=== PATIENT | female | born 1950 | race Two or more races ===

== ENCOUNTER 2016-12-05 05:37 | Day surgery (SDC) | payer MEDICARE, OTHER ==
[~2016-12-05] VITALS: Ht 160 cm; Wt 108.2 kg
[2016-12-05 06:25] VITALS: BP 128/50; PULSE 77; RESP 18
[2016-12-05] MEDS ORDERED: PROPOFOL 20 ML ONE (06:28)
[2016-12-05] MEDS ORDERED: LIDOCAINE 100 MG SYRINGE ONE (06:28)
--- NOTE | 2016-12-05 06:28 | PREOPHP ---
DATE OF ADMISSION: 12/05/2016 HISTORY OF PRESENT ILLNESS: This 66-year-old patient is admitted for elective cataract surgery of t he right eye. The patient has had a 25 to 30 year history of insulin-dependent diabetes mellitus an d over the past 3 years has undergone retinal laser therapy for diabetic retinopathy including panre tinal photocoagulation and focal laser therapy of the macula area for secondary macula edema. The p atient denies other history of eye disease or injury. PAST MEDICAL HISTORY: Patient's systemic history is positive for hypertension, hypercholesterolemia and diabetes. CURRENT MEDICATIONS: Include: 1. Insulin. 2. Losartan. 3. Atorvastatin. ALLERGIES: THERE ARE NO KNOWN ALLERGIES. PHYSICAL EXAMINATION: The visual acuity with best correction is 20/50 -2 in the right eye and 20/40 -1 in the left eye. Slit lamp examination reveals anterior cortical and nuclear sclerotic cataract s in both eyes with posterior subcapsular cataract in the right eye. Applanation tonometry is 20 mm Hg. Examination of the retina reveals evidence of extensive retinal laser therapy. DIAGNOSIS: Posterior subcapsular cataract, right eye. PLAN: Cataract extraction with lens implant, right eye. The risks and alternatives to the surgery have been discussed with the patient as well as the potential limitation of visual improvement due t o the prior history of diabetic retinopathy. The patient understands this and agrees to proceed wit h surgery in hopes of improving visual acuity leading to a greater ability to perform activities of daily living. Dictated By: BRIDGETT MELVIN/SAMI Conf#: [id number] DID#: [id number]
[2016-12-05] MEDS ORDERED: CYCLOPENTOLATE/PHENYLEPH 2 ML OPH OPER SCH (06:30)
[2016-12-05] MEDS ORDERED: OXYCODONE/ACETAMINOPHEN (5/325) TAB PO PRN ×2 (06:30)
[2016-12-05] MEDS ORDERED: morphine (1 MG/ML) 10ML SYRINGE IV PRN ×3 (06:30)
[2016-12-05] MEDS ORDERED: DICLOFENAC 0.1% 2.5 ML OPH OPER SCH (06:30)
[2016-12-05] MEDS ORDERED: hydrALAzine 20 MG INJ IV PRN (06:30)
[2016-12-05] MEDS ORDERED: LABETALOL HCL 20MG INJ IV PRN (06:30)
[2016-12-05] MEDS ORDERED: TROPICAMIDE 1% 2 ML OPH OPER SCH (06:30)
[2016-12-05] MEDS ORDERED: ATROPINE 1 MG/10 ML SYRINGE IV PRN (06:30)
[2016-12-05] MEDS ORDERED: DIPHENHYDRAMINE 50 MG INJ IV PRN (06:30)
[2016-12-05] MEDS ORDERED: FENTAnyl 50 MCG/ML VIAL IV PRN ×2 (06:30)
[2016-12-05] MEDS ORDERED: HYDROmorphONE (0.2 MG/ML) 10ML SYG IV PRN ×3 (06:30)
[2016-12-05] MEDS ORDERED: EPHEDrine SULFATE 50 MG/5 ML SYG IV PRN (06:30)
[2016-12-05] MEDS ORDERED: ONDANSETRON 4 MG INJ IV PRN (06:30)
[2016-12-05] MEDS ORDERED: MEPERIDINE 25 MG INJ IV PRN (06:30)
[2016-12-05] MEDS ORDERED: CIPROFLOXACIN 0.3% 2.5 ML OPH OPER SCH (06:30)
[2016-12-05] MEDS ORDERED: PHENYLephrine 10% 5 ML OPH OPER SCH (06:30)
[2016-12-05] MEDS ORDERED: MIDAZOLAM 1 MG/ML 2 ML INJ IV PRN (06:30)
[2016-12-05 06:32] VITALS: Ht 160 cm; Wt 108.2 kg
[2016-12-05] MEDS ORDERED: MOXIFLOXACIN 0.5% 3 ML OPH ONE (06:52)
[2016-12-05] MEDS ORDERED: TETRACAINE 0.5% 15 ML OPH ONE (06:52)
[2016-12-05] MEDS ORDERED: LIDOCAINE 4% (MPF) 5 ML INJ ONE (06:52)
[2016-12-05] MEDS ORDERED: CARBACHOL 0.01% 1.5 ML OPH INJ ONE (06:52)
[2016-12-05] MEDS ORDERED: CEFAZOLIN 1 GM INJ ONE (06:52)
[2016-12-05] MEDS ORDERED: HYALURONATE/CHONDROITIN 1ML OPH INJ ONE (06:52)
[2016-12-05] MEDS ORDERED: GENTAMICIN 80 MG INJ ONE (06:52)
[2016-12-05] MEDS ORDERED: DEXAMETHASONE 4 MG/ML 1 ML INJ ONE (06:52)
[2016-12-05] MEDS ORDERED: EPINEPHrine 1 MG INJ ONE (06:52)
[2016-12-05] MEDS ORDERED: SPIR100T31 PO (06:55)
[2016-12-05] MEDS ORDERED: LOSA100T7 PO (06:55)
[2016-12-05] MEDS ORDERED: ATOR80TA75 PO (06:55)
[2016-12-05] MEDS ORDERED: ASPI-664 (06:55)
[2016-12-05] MEDS ORDERED: INSU100I12 (06:55)
[2016-12-05] MEDS ORDERED: NPH,100V (06:55)
[2016-12-05] MEDS ORDERED: SODIUM CL BACTERIOSTATIC 30 ML INJ ONE (07:18)
[2016-12-05] MEDS ORDERED: LIDOCAINE 1% (MPF) 10 ML INJ ONE (08:00)
[2016-12-05] MEDS ORDERED: FENTAnyl 50 MCG/ML VIAL ONE (08:01)
[2016-12-05] MEDS ORDERED: MIDAZOLAM 1 MG/ML 2 ML INJ ONE (08:04)
[2016-12-05 08:43] VITALS: BP 114/56; PULSE 70; RESP 14
[2016-12-05 08:48] VITALS: BP 112/59; PULSE 68; RESP 14
[2016-12-05 08:53] VITALS: BP 109/55; PULSE 66; RESP 14
[2016-12-05 08:58] VITALS: BP 109/57; PULSE 66; RESP 14
[2016-12-05 09:10] VITALS: BP 123/58; PULSE 68; RESP 16
--- NOTE | 2016-12-05 10:15 | OPR ---
DATE OF OPERATION: 12/05/2016 PREOPERATIVE DIAGNOSIS: Cataract, right eye. POSTOPERATIVE DIAGNOSIS: Cataract, right eye. OPERATION PERFORMED: Cataract extraction with lens implant, right eye. SURGEON: Bridgtet Chatman MD ANESTHESIA: Local standby. ANESTHESIOLOGIST: Dr. Thurman DESCRIPTION OF PROCEDURE: The patient brought to the operating room and positioned on the eye gurney appropriately and then was attached to electrocardiogram monitoring, given some oxygen via nasal cannula. Intravenous sedation was administered. The patient received a local anesthesia using lidocaine 4% given in lid block and retrobulbar injection. The patient was then prepped and draped in the usual sterile manner and a speculum was inserted between the lids of the right eye. Two paracentesis incisions were created with a Superblade at the 3 and 9 o'clock position through clear cornea at the limbus and then using a 3.0 mm keratome, a stepped incision was made into clear cornea at the 12 o'clock position. Through this opening, an irrigating cystotome was introduced, the anterior chamber was filled with DisCoVisc and an anterior capsulotomy was performed. Balanced salt solution was used for hydrodissection. Phacoemulsification of the lens nucleus was then performed. Following that, the lens cortical material was removed by means of irrigation aspiration. During this time, it was noted that the posterior capsule stripped centrally; however, some residual peripheral posterior capsule remained. An attempt was made to place a posterior chamber intraocular lens in position in the posterior chamber with the haptics being supported by the peripheral capsule. A 21- diopter posterior chamber intraocular lens was placed; however, the lens was not well supported in the posterior capsule, and as a result, the lens needed to be removed. In order to do so, the wound was opened beyond its 3 mm extent to approximately 6 mm. The lens was then removed. During this process, it was noted that there was some formed vitreous present in the anterior chamber and therefore, a limited anterior vitrectomy was performed. When there was no vitreous in the anterior chamber or at the lips of the wound, it was decided to place an anterior chamber lens implant. The pupil was constricted with Miostat and then a peripheral iridectomy was performed at the 12 o'clock position. Additional DisCoVisc was injected into the anterior chamber and then a lens glide was placed across the anterior surface of the iris. After this had been done, an anterior chamber lens measuring 19.5 diopters ( Bausch [employer] Lomb model L122UV) was inserted anterior to the lens glide, which was then removed. The trailing haptic was then tucked under the scleral shelf. Three 10-0 nylon sutures were placed across the wound and tied with the ends cut short. The lens was then rotated so that the haptics were in the horizontal meridian and resting in the anterior chamber angle. A fourth 10-0 nylon suture was placed and tied. Its ends were cut short and the knots of all 4 sutures were then buried. Prior to placing the final suture; however, the DisCoVisc was aspirated from the anterior chamber. When it was noted that the lens was positioned appropriately and the pupil had been constricted by Miostat , additional balanced salt solution was placed in the anterior chamber to deepen it and then the speculum was removed, and 0.5 mL of Ancef and 0.5 mL of dexamethasone were injected into the subconjunctival space and Vigamox drops were placed on the surface of the eye. The eye was then patched and the patient left the operating room in satisfactory condition. Dictated By: BRIDGETT MELVIN/SAMI Conf#: [id number] DID#: [id number]
== END 2016-12-05 09:30 | disposition home or self-care (01) ==
LOC: SDS 05:37
PROVIDERS: ATTEND Ophthalmology
DX: H26.9 Unspecified cataract (principal); E11.319 Type 2 diabetes mellitus with unspecified diabetic retinopathy without macular edema; Z79.4 Long term (current) use of insulin; I10 Essential (primary) hypertension; E78.00 Pure hypercholesterolemia, unspecified; E66.01 Morbid (severe) obesity due to excess calories; Z68.41 Body mass index [BMI] 40.0-44.9, adult
CPT/HCPCS: 66984; 82962; J0171; J0690; J1100; J1580; J2001; J2250; J3010; V2632

== ENCOUNTER 2017-01-30 11:09 | Emergency (ER) | payer MEDICARE, OTHER ==
[~2017-01-30] VITALS: Ht 160 cm; Wt 109.0 kg
[~2017-01-30 11:09] MED LIST: ASPI-664; ATOR80TA75 PO; INSU100I12; LOSA100T7 PO; NPH,100V; SPIR100T31 PO
[2017-01-30 11:26] VITALS: Ht 160 cm; Wt 109.0 kg
--- NOTE | 2017-01-30 14:06 | RADRPT ---
PROCEDURE: XR Chest. CLINICAL INDICATION: Chest pain TECHNIQUE: Chest PA COMPARISON: None available FINDINGS: The mediastinal structures are unremarkable. There is calcification of the thoracic aorta (consiste nt with atherosclerosis). The heart is normal in size and configuration. The pulmonary vascularity is normal. The lung isaacs are unremarkable. No consolidation is identified. The pleural spaces are unremarkable. There are senescent changes of the axial skeleton. IMPRESSION: Calcification of the thoracic aorta (consistent with atherosclerosis). No evidence for active cardiopulmonary disease. RPTAT: [facility] .Emanuel Osborne MD, MD Date Time Electronically viewed and signed by .Emanuel Osborne MD, on 01/30/2017 14:06 .B/
--- NOTE | 2017-01-30 14:13 | RADRPT ---
PROCEDURE: XR Wrist. CLINICAL INDICATION: Trauma, left wrist pain TECHNIQUE: 4 views of the left wrist were performed. COMPARISON: No prior studies are available for comparison. FINDINGS: There is no acute fracture or dislocation. Alignment is normal. Joint spaces are preserved. Visualized soft tissues are grossly unremarkable. IMPRESSION: 1. No radiographic evidence of acute osseous abnormality of the left wrist. RPTAT: [facility] .Srinath Rodriguez MD, MD Date Time Electronically viewed and signed by .Srinath Rodriguez MD, on 01/30/2017 14:13 .K/
--- NOTE | 2017-01-30 14:14 | RADRPT ---
PROCEDURE: XR Elbow. CLINICAL INDICATION: Trauma, left elbow pain TECHNIQUE: AP, lateral and oblique views of the left elbow performed. COMPARISON: None. FINDINGS: There is an acute slightly impacted radial neck fracture with 1-2 mm of radial sided cortical offset . There is a small elbow joint effusion. The bones are somewhat osteopenic. No additional fractur es are seen. There is no articular surface step-off identified. IMPRESSION: 1. Acute slightly impacted radial neck fracture with background osteopenia. 2. Small elbow joint effusion. RPTAT: [facility]U .Srinath Rodriguez MD, MD Date Time Electronically viewed and signed by .Srinath Rodriguez MD, on 01/30/2017 14:14 .K/
[2017-01-30] MEDS ORDERED: IBUP-1542 PO (14:35)
--- NOTE | 2017-01-30 14:39 | ERD ---
ER Documentation Chief Complaint Date/Time DATE: 01/30/17 TIME: 14:37 Chief Complaint left arm pain due to fall HPI 66-year-old female fell after tripping approximately 2 weeks ago. She is here complaining of persistent pain in her left elbow, left wrist and bilateral lower chest wall area. She denies any head injury loss consciousness, neck pain , weakness, bleeding, restricted range of motion or weakness. ROS All systems reviewed and are negative except as per history of present illness. Medications Home Meds Active Scripts Ibuprofen* (Motrin*) 600 Mg Tab, 600 MG PO Q6, #18 TAB Prov:PER GONSALES MD 01/30/17 Reported Medications Spironolactone* (Spironolactone*) 100 Mg Tablet, 25 MG PO BID, TAB 12/05/16 Aspirin* (Aspirin* EC) 81 Mg Tablet.dr, #120 12/05/16 Atorvastatin* (Atorvastatin*) 80 Mg Tablet, 1 TAB PO QHS, #90 12/05/16 Losartan Potassium* (Losartan Potassium*) 100 Mg Tablet, 1 TAB PO DAILY, #60 12/05/16 Insulin Lispro (Humalog Kwikpen U-100) 100 Unit/1 Ml Insuln.pen, #10 12/05/16 Insulin NPH Human Isophane (Humulin N) 100 Unit/1 Ml Vial, #30 12/05/16 Allergies Allergies: Coded Allergies: No Known Allergy (Unverified , 12/05/16) PMhx/Soc History of Surgery: Yes (RT VARICOSE, r. eye cataract ) Anesthesia Reaction: Yes Hx Neurological Disorder: No Hx Respiratory Disorders: No Hx Cardiac Disorders: Yes (HTN) Hx Psychiatric Problems: No Hx Miscellaneous Medical Probl: Yes (dm ) Hx Alcohol Use: No Hx Substance Use: No Hx Tobacco Use: No Physical Exam Vitals Vital Signs Date Time Temp Pulse Resp B/P Pulse Ox O2 Delivery O2 Flow Rate FiO2 01/30/17 11:26 98.4 78 20 152/63 97 Physical Exam Const: [] Alert, [id number]. Head: Atraumatic Eyes: Normal Conjunctiva ENT: Normal External Ears, Nose and Mouth. Neck: Full range of motion..~ No meningismus. Resp: Clear to auscultation bilaterally Cardio: Regular rate and rhythm, no murmurs. Mild bilateral chest wall tenderness approximately T10. No crepitance or skin changes. Abd: Soft, non tender, non distended. Normal bowel sounds Skin: No petechiae or rashes Back: No midline or flank tenderness Ext: No cyanosis, or edema. There is some tenderness which is mild in the left radial head area. Some mild generalized tenderness in the left wrist. There is no appreciable restricted range of motion or weakness or tendon or neurologic deficits. There is no bleeding, redness or lacerations Neur: Awake and alert Psych: Normal Mood and Affect Procedures/MDM Chest X-ray 1V Interpreted by me: Soft Tissue: No acute abnormalities Bones: No acute abnormalities Mediastinum/Cardiac Silhouette/Lungs: [No acute abnormalities]. Impression- normal 1 view chest x-ray X-ray Elbow 3V Interpreted by me: Fat Pads: There is an elevated left anterior fat pad. Bones: There is an impacted radial head fracture Joints: [No dislocation] Foreign body: [None]. Impression-impacted radial head fracture left elbow with slight effusion. X-ray left wrist 3V Interpreted by me: Scaphoid: [Normal] Bones: [No fracture] Joints: [No dislocation] Foreign body: [None]. Impression abnormal left wrist x-ray Patient was placed in a left wrist Velcro brace and left arm sling. Splint Assessment: Neurovascularly intact post splint placement with good fit. Patient presents 2 weeks after mechanical fall with signs of a left impacted radial head fracture and left wrist sprain. She will be referred to orthopedics for further evaluation within the next week. She was advised she may need authorization from primary doctor. There is no signs or symptoms to suggest neurovascular compromise, tendon or neurologic deficit, additional significant injuries other than her radial head fracture. The patient was stable with no new complaints during the ER course. Clinically, there is no current evidence to suggest meningitis, sepsis, acute abdomen, pneumonia, acute coronary syndrome, pulmonary embolism, or any other emergent condition appearing to require further evaluation or hospitalization. The patient should certainly return for any new or worsening symptoms per the aftercare instructions. They should otherwise follow-up with her primary care doctor for reevaluation this week. Departure Diagnosis: Primary Impression: Radial head fracture, closed Encounter type: initial encounter Fracture alignment: displaced Laterality : left Qualified Code: S52.122A - Closed displaced fracture of head of left radius, initial encounter Condition: Stable Patient Instructions: Radial Head Fracture Referrals: STARR POON MD [facility] Hours: Sun-Sun 9:00 AM - 5:00 PM Additional Instructions: cory fractura en codo ( eliana de radius) Va al culver doctor/ specialista ( orthopedico) para mas evaluacon en el proximo semana. posiblemente necesita autorizado de culver doctor primario para specialista. Regresa para fiebre, o mas o nueva simptomas. PER GONSALES MD Jan 30, 2017 14:39
[2017-01-30 15:00] VITALS: BP 128/69; PULSE 77; RESP 18
== END 2017-01-30 15:00 | disposition home or self-care (01) ==
LOC: FTE 11:09
DX: S52.122A Displaced fracture of head of left radius, initial encounter for closed fracture (principal); I10 Essential (primary) hypertension; E11.9 Type 2 diabetes mellitus without complications; W01.0XXA Fall on same level from slipping, tripping and stumbling without subsequent striking against object, initial encounter; Y92.9 Unspecified place or not applicable; Z79.82 Long term (current) use of aspirin; Z79.4 Long term (current) use of insulin
CPT/HCPCS: 71010